=== PATIENT | male | born 1995 | race Caucasian/White ===

== ENCOUNTER 2017-04-09 11:51 | Outpatient (CLI) | payer MEDICAID ==
[2017-04-09 11:56] VITALS: BP 146/82
== END 2017-04-09 12:30 | disposition home or self-care (01) ==
LOC: ORTHO 11:51
PROVIDERS: ATTEND Nurse Practitioner Family
DX: S62.025G Nondisplaced fracture of middle third of navicular [scaphoid] bone of left wrist, subsequent encounter for fracture with delayed healing (principal); F17.210 Nicotine dependence, cigarettes, uncomplicated; X58.XXXD Exposure to other specified factors, subsequent encounter
CPT/HCPCS: 73110

== ENCOUNTER 2017-05-27 14:54 | Outpatient (CLI) | payer MEDICAID ==
[2017-05-27 15:08] VITALS: BP 155/95
== END 2017-05-27 15:20 | disposition home or self-care (01) ==
LOC: ORTHO 14:54
PROVIDERS: ATTEND Nurse Practitioner Family
DX: S62.025D Nondisplaced fracture of middle third of navicular [scaphoid] bone of left wrist, subsequent encounter for fracture with routine healing (principal); F17.210 Nicotine dependence, cigarettes, uncomplicated; M79.89 Other specified soft tissue disorders; F12.90 Cannabis use, unspecified, uncomplicated; X58.XXXD Exposure to other specified factors, subsequent encounter
CPT/HCPCS: 73100